=== PATIENT | female | born 1995 | race Caucasian/White ===

== ENCOUNTER 2022-08-02 18:27 | Emergency (ER) | payer OTHER ==
[2022-08-02 18:42] VITALS: O2SAT 100
[2022-08-02 19:12] LABS: Absolute Neutrophil Ct (ANC) 5.43 x10^3/uL (1.4-6.9); BASOPHIL % 0.2 % (0.0-0.4); Basophil (Absolute #) 0.02 x10^3/uL (0-0.4); Eosinophil % 1.7 % (0.00-5.0); Eosinophil (Absolute #) 0.14 x10^3/uL (0-0.5); Hematocrit 40.9 % (35-47); Hemoglobin 12.8 g/dL (12.0-16.0); IMMATURE GRAN # 0.05 x10^3u/L (0.00-0.03); IMMATURE GRAN % 0.6 % (0.00-0.4); Lymphocyte (Absolute #) 2.16 x10^3/uL (1.0-4.6); Mean Cell Volume 83.3 fL (78-100); Mean Corpuscular Hemoglobin 26.1 pg (26-32); Mean Corpuscular Hgb Concent. 31.3 g/dL (32-36); Mean Platelet Volume 9.9 fL (7.5-11.0); Neutrophil % 65.5 % (36.0-66.0); Platelet Count 305 x10^3/uL (150-450); Red Blood Count 4.91 x10^6/uL (4.1-5.4); Red Cell Distribution Width 15.5 % (11.5-14.0); White Blood Count 8.3 x10^3/uL (4.0-10.5)
[2022-08-02 19:29] LABS: ALBUMIN 4.3 g/dL (3.5-5.0); ALKALINE PHOSPHATASE 133 U/L (38-126); BLOOD UREA NITROGEN 11 mg/dL (7-17); CHLORIDE 105 mmol/L (98-107); Calcium 8.7 mg/dL (8.4-10.2); Carbon Dioxide 23 mmol/L (22-30); Creatinine 1 0.86 mg/dL (0.52-1.04); EST GLOMERULAR FILTRATION RATE > 60.0 ML/MIN; Glucose 132 mg/dL (74-106); LIPASE 135 U/L (23-300); Potassium 3.8 mmol/L (3.5-5.1); SGOT/AST 26 U/L (14-36); SGPT/ALT 24 U/L (0-35); SODIUM 140 mmol/L (137-145); Total Protein 7.6 g/dL (6.3-8.2)
[2022-08-02 19:46] LABS: Appearance Clear (Clear); Bacteria Rare /HPF (None Seen); Bilirubin Negative (Negative); Blood Small (Negative); Epithelial Cells Rare /HPF (None Seen); Glucose, Urine Negative (Negative); Hyaline Casts NONE SEEN /LPF (0-2); Ketones Negative (Negative); Leukocyte Esterase Small (Negative); Nitrite Negative (Negative); Ph 5.5 (4.6-8.0); Protein,Urine Dip Negative (Negative); RBC 0-2 /HPF (0-5); Urobilinogen 0.2 mg/dL (0.2)
[2022-08-02 19:47] LABS: ADD URINE CULTURE? NO (NO)
--- NOTE | 2022-08-02 20:33 | ERPHSYRPT ---
- History of Present Illness Time Seen by Provider: 08/02/22 18:40 Historian: patient Exam Limitations: no limitations Patient Subjective Stated Complaint: pt states I am having pain on my rt side Triage Nursing Assessment: pt came into the er via ambulance; pt transfer to cot per self; c/o RUQ pain; pt states she ate prior to arrival; no respiratory distress present; skin PDW; abd obese, soft, nontender; hypertensive; tachycardic Physician History: Patient 27-year-old female presents to our ED for evaluation of right upper quadrant pain. Pain occurred after eating a meal. Pain gradually subsided. Patient denies a history of the same. No trauma. No fever. No nausea vomiting or diaphoresis. Symptoms are mild to moderate in intensity. Symptoms are intermittent. Patient voices no other complaints or concerns at this time. 27-year-old female with right upper quadrant pain. Pain resolved. Patient resting comfortably. Physical exam shows some tenderness to right upper quadrant. No rebound. No peritoneal signs. Test ordered include CT abdomen pelvis, CBC, CMP, hCG, lipase and UA. CT abdomen pelvis reveals stomach distended with food. Patient does had a meal and states that her right upper quadrant pain occurred after she ate. Patient is not feeling well. Normal appendix. Uterine endometrial cavity distended up to 3 cm. Fatty liver. Patient will be referred to Dr. Alvarez for the distended uterine endometrial cavity. Complexity of problems addressed is moderate. New diagnosis uncertain prognosis. Test ordered. Test reviewed. Patient served as independent historian however E MS provided significant information towards HPI. Case discussed with Dr. Wiley. We discussed management regarding patient's right upper quadrant pain. We were unable to add right upper quadrant ultrasound today as ultrasound is not immediately available. A right upper quadrant ultrasound was ordered for the morning. Patient has a prescription to obtain the ultrasound. Report to be sent to Dr. Wiley. However Dr. Wiley may not be available today to see our patient and he advised our patient to follow[facility]up at [facility] as they have access to the ultrasound result. Any concerning findings patient will be referred back to the ER. -Risk of complication and or risk morbidity/mortality of patient management is minimal. Patient declined pain medication his pain resolved upon arrival LINDA PM (risk of complications and or M&M of patient management) -Therapeutic interventions like immediate treatment, medication IM/IV/SQ controlled meds/-benzos/narcotics, nebulizer treatment, IVF, Blood transfusion, (any response to care), -Referrals, consults, discussion with admitting MD -Procedures (CPR, intubation, lac repair), offered, considered, performed, risks/benefits explained to patient, comorbidity effects -State potential risks of meds (blood thinners, anti-arrhythmics, insulin, blood transfusion reaction) -Prescription drugs. (including considered and or offered and why) -State any therapies considered or offered and why Minimal risk-superficial dressings, slings, gargle Low Risk-minor sx (lac repair), PT/OT (walk pt), IVF Moderate Risk-prescriptions, I&D, surgical decisions, Treatment limited by SDOH High Risk- IV/IM/SQ controlled meds, meds requiring monitoring, hospitalization, Nebulizer rx. DNR decision. Dispo (Admit, DC, Transfer, ) Plan of care and any SDOH that may impede follow up like ETOH use, smoking, homelessness, money, family support (ability to access/comply with plan) -Shared decision making (patient agrees to etc) -Time spent to discharge patient. -DC Dx, -DC vitals Level of EM service provided ? Level of EM service provided would be the same as the highest level assigned to COPA, CODA, LINDA. (Straight forward (282), Low (283), Moderate (284), High (285), Critical Care) Document everything done in caring for the patient and why. Document if I discussed code status full code/DNR and everything in between Document any changes in working Diagnosis Timing/Duration: today Activities at Onset: none Quality: aching Abdominal Pain Onset Location: RUQ Pain Radiation: no radiation Severity of Pain-Max: moderate Severity of Pain-Current: mild Modifying Factors: Improves With: other (Pain worsens after eating.) Associated Symptoms: denies symptoms Previous symptoms: no prior history Allergies/Adverse Reactions: No Known Drug Allergies Allergy (Unverified 08/02/22 18:30) Home Medications: No Reportable Medications [No Reported Medications] 08/02/22 [History] Hx Tetanus, Diphtheria Vaccination/Date Given: No Travel Risk - International Travel Have you traveled outside of the country in past 3 weeks: No - Coronavirus Screening Are you exhibiting any of the following symptoms?: No Close contact with a COVID-19 positive Pt in past 14-21 Days: No - Vaccine Status Have you recieved a Covid-19 vaccination: Yes 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 - Vaccination Dates Dates if Unknown: unknown - Review of Systems Constitutional: No Symptoms, No Fever, No Chills Eyes: No Symptoms Ears, Nose, & Throat: No Symptoms Respiratory: No Symptoms, No Cough, No Dyspnea Cardiac: No Symptoms, No Chest Pain, No Edema, No Syncope Abdominal/Gastrointestinal: No Symptoms, No Abdominal Pain, No Nausea, No V omiting, No Diarrhea Genitourinary Symptoms: No Symptoms, No Dysuria Musculoskeletal: No Symptoms, No Back Pain, No Neck Pain Skin: No Symptoms, No Rash Neurological: No Symptoms, No Dizziness, No Focal Weakness, No Sensory Changes Psychological: No Symptoms Endocrine: No Symptoms Hematologic/Lymphatic: No Symptoms Immunological/Allergic: No Symptoms All Other Systems: Reviewed and Negative - Past Medical History Pertinent Past Medical History: Yes Neurological History: No Pertinent History ENT History: No Pertinent History Cardiac History: No Pertinent History Respiratory History: No Pertinent History Endocrine Medical History: No Pertinent History Musculoskeletal History: No Pertinent History GI Medical History: No Pertinent History History: No Pertinent History Psycho-Social History: Anxiety, Depression Female Reproductive Disorders: No Pertinent History - Past Surgical History Past Surgical History: No - Social History Smoking Status: Never smoker Exposure to second hand smoke: No Drug Use: none Patient Lives Alone: No - Female History Hx Now: No (unsure) - Nursing Vital Signs Nursing Vital Signs: Initial Vital Signs Temperature 99.3 F 08/02/22 18:30 Pulse Rate 109 H 08/02/22 18:30 Respiratory Rate 20 08/02/22 18:30 Blood Pressure 177/123 08/02/22 18:30 O2 Sat by Pulse Oximetry 100 08/02/22 18:30 Pain Scale Pain Intensity 8 - Physical Exam General Appearance: no apparent distress, alert Eye Exam: PERRL/EOMI, eyes nml inspection Ears, Nose, Throat Exam: normal ENT inspection, pharynx normal, moist mucous membranes Neck Exam: normal inspection, non-tender, supple, full range of motion Respiratory Exam: normal breath sounds, lungs clear, airway intact, No respiratory distress Cardiovascular Exam: regular rate/rhythm, normal heart sounds, normal peripheral pulses Gastrointestinal/Abdomen Exam: soft, No tenderness, No mass Back Exam: normal inspection, normal range of motion, No CVA tenderness, No v ertebral tenderness Extremity Exam: normal inspection, normal range of motion, pelvis stable Neurologic Exam: alert, oriented x 3, cooperative, normal mood/affect, nml cerebellar function, sensation nml, No motor deficits Skin Exam: normal color, warm, dry Lymphatic Exam: No adenopathy SpO2 Interpretation: normal SpO2: 100 O2 Delivery: Room Air - Course Nursing assessment & vital signs reviewed: Yes - CT Exams Abdomen/Pelvis CT Interpretation: Tele-radiologist Report (No comps. Stomach distended with food. Normal appendectomy. Uterine endometrial cavity distended up to 3 cm. Fatty liver.) Ordered Tests: Active Orders 24 hr Category Date Time Status ABDOMEN AND PELVIS W/0 CONTRAS [CT] Stat Exams 08/02/22 19:38 Taken CBC W DIFF Stat Lab 08/02/22 19:05 Completed CMP Stat Lab 08/02/22 19:05 Completed HCG,QUALITATIVE URINE Stat Lab 08/02/22 18:51 Completed LIPASE Stat Lab 08/02/22 19:05 Completed UA W/RFX UR CULTURE Stat Lab 08/02/22 18:51 Completed Lab/Rad Data: Laboratory Result Diagrams 08/02/22 19:05 08/02/22 19:05 Laboratory Results 08/02/22 08/02/22 08/02/22 Range/Units 19:05 19:05 18:51 WBC 8.3 (4.0-10.5) x10^3/uL RBC 4.91 (4.1-5.4) x10^6/uL Hgb 12.8 (12.0-16.0) g/dL Hct 40.9 (35-47) % MCV 83.3 (78-100) fL MCH 26.1 (26-32) pg MCHC 31.3 L (32-36) g/dL RDW 15.5 H (11.5-14.0) % Plt Count 305 (150-450) x10^3/uL MPV 9.9 (7.5-11.0) fL Gran % 65.5 (36.0-66.0) % Immature Gran % (Auto) 0.6 H (0.00-0.4) % Nucleat RBC Rel Count 0.0 (0.00-0.1) % Eos # (Auto) 0.14 (0-0.5) x10^3/uL Immature Gran # (Auto) 0.05 H (0.00-0.03) x10^3u/L Absolute Lymphs (auto) 2.16 (1.0-4.6) x10^3/uL Absolute Monos (auto) 0.50 (0.0-1.3) x10^3/uL Absolute Nucleated RBC 0.00 (0.00-0.01) x10^3u/L Lymphocytes % 26.0 (24.0-44.0) % Monocytes % 6.0 (0.0-12.0) % Eosinophils % 1.7 (0.00-5.0) % Basophils % 0.2 (0.0-0.4) % Absolute Granulocytes 5.43 (1.4-6.9) x10^3/uL Basophils # 0.02 (0-0.4) x10^3/uL Sodium 140 (137-145) mmol/L Potassium 3.8 (3.5-5.1) mmol/L Chloride 105 (98-107) mmol/L Carbon Dioxide 23 (22-30) mmol/L Anion Gap 16.0 H (5-15) MEQ/L BUN 11 (7-17) mg/dL Creatinine 0.86 (0.52-1.04) mg/dL Estimated GFR > 60.0 ML/MIN Glucose 132 H (74-106) mg/dL Calcium 8.7 (8.4-10.2) mg/dL Total Bilirubin 0.20 (0.2-1.3) mg/dL AST 26 (14-36) U/L ALT 24 (0-35) U/L Alkaline Phosphatase 133 H (38-126) U/L Serum Total Protein 7.6 (6.3-8.2) g/dL Albumin 4.3 (3.5-5.0) g/dL Lipase 135 (23-300) U/L Urine Color (Yellow) Urine Appearance (Clear) Urine pH (4.6-8.0) Ur Specific Col[place] (1.005-1.030) Urine Protein (Negative) Urine Glucose (UA) (Negative) mg/dL Urine Ketones (Negative) Urine Blood (Negative) Urine Nitrite (Negative) Urine Bilirubin (Negative) Urine Urobilinogen (0.2) mg/dL Ur Leukocyte Esterase (Negative) U Hyaline Cast (Auto) (0-2) /LPF Urine Microscopic RBC (0-5) /HPF Urine Microscopic WBC (0-5) /HPF Ur Epithelial Cells (None Seen) /HPF Urine Bacteria (None Seen) /HPF Urine Culture Reflexed (NO) Urine HCG, Qual NEGATIVE (Negative) 08/02/22 Range/Units 18:51 WBC (4.0-10.5) x10^3/uL RBC (4.1-5.4) x10^6/uL Hgb (12.0-16.0) g/dL Hct (35-47) % MCV (78-100) fL MCH (26-32) pg MCHC (32-36) g/dL RDW (11.5-14.0) % Plt Count (150-450) x10^3/uL MPV (7.5-11.0) fL Gran % (36.0-66.0) % Immature Gran % (Auto) (0.00-0.4) % Nucleat RBC Rel Count (0.00-0.1) % Eos # (Auto) (0-0.5) x10^3/uL Immature Gran # (Auto) (0.00-0.03) x10^3u/L Absolute Lymphs (auto) (1.0-4.6) x10^3/uL Absolute Monos (auto) (0.0-1.3) x10^3/uL Absolute Nucleated RBC (0.00-0.01) x10^3u/L Lymphocytes % (24.0-44.0) % Monocytes % (0.0-12.0) % Eosinophils % (0.00-5.0) % Basophils % (0.0-0.4) % Absolute Granulocytes (1.4-6.9) x10^3/uL Basophils # (0-0.4) x10^3/uL Sodium (137-145) mmol/L Potassium (3.5-5.1) mmol/L Chloride (98-107) mmol/L Carbon Dioxide (22-30) mmol/L Anion Gap (5-15) MEQ/L BUN (7-17) mg/dL Creatinine (0.52-1.04) mg/dL Estimated GFR ML/MIN Glucose (74-106) mg/dL Calcium (8.4-10.2) mg/dL Total Bilirubin (0.2-1.3) mg/dL AST (14-36) U/L ALT (0-35) U/L Alkaline Phosphatase (38-126) U/L Serum Total Protein (6.3-8.2) g/dL Albumin (3.5-5.0) g/dL Lipase (23-300) U/L Urine Color Yellow (Yellow) Urine Appearance Clear (Clear) Urine pH 5.5 (4.6-8.0) Ur Specific Col[place] 1.020 (1.005-1.030) Urine Protein Negative (Negative) Urine Glucose (UA) Negative (Negative) mg/dL Urine Ketones Negative (Negative) Urine Blood Small A (Negative) Urine Nitrite Negative (Negative) Urine Bilirubin Negative (Negative) Urine Urobilinogen 0.2 (0.2) mg/dL Ur Leukocyte Esterase Small A (Negative) U Hyaline Cast (Auto) NONE SEEN (0-2) /LPF Urine Microscopic RBC 0-2 (0-5) /HPF Urine Microscopic WBC 3-5 (0-5) /HPF Ur Epithelial Cells Rare (None Seen) /HPF Urine Bacteria Rare A (None Seen) /HPF Urine Culture Reflexed NO (NO) Urine HCG, Qual (Negative) - Progress Progress: improved Progress Note: 27-year-old female presents to our ED with right upper quadrant pain. Patient arrived via EMS. Upon arrival pain significantly improved. Complexity of problem addressed is moderate. New diagnosis with uncertain prognosis. No critical care time. Complexity of data reviewed and analyzed is moderate. Dr. Chiang reviewed laboratory studies as well as report from radiologist. Risk of complication and or risk morbidity/mortality of patient management is minimal. Patient declined pain medication as her right upper quadrant pain resolved upon arrival. Patient to obtain right upper quadrant ultrasound tomorrow morning. Patient will contact Dr. Wiley however she cannot see Dr. Wiley patient reported [facility]. They have access to the right upper quadrant ultrasound report. If there are any abnormalities patient to return to our ED for an evaluation. Portions of this note were created with voice recognition technology. There may be grammatical, spelling, punctuation or sound alike errors Patient will be discharged home. She is asymptomatic. She voices no other complaints or concerns at this time. Discussed with : Matthieu Will see patient in: office Counseled pt/family regarding: lab results, diagnosis, need for follow-up, rad results - Departure Departure Disposition: Home Clinical Impression: Right upper quadrant pain, Uterine endometrial cavity distended, Fatty liver Condition: Stable Critical Care Time: No Referrals: DANIS CARRANZA DO [ACTIVE STAFF] - Follow up/PCP as directed TARYN WILEY MD [ACTIVE STAFF] - Follow up/PCP as directed Additional Instructions: Please follow-up with for your abnormal uterus as observed on today's CAT scan Please obtain a right upper quadrant ultrasound in the morning of 08/03/[address] Wiley's office however if you cannot see Dr. Wiley report to [facility] as they will have access to the report. If there is a significant abnormality observed on the report they will direct you to return to our emergency department. Discharge/Care Plan GARRICK MTAHEW was seen on 08/02/22 in the Emergency Room. The patient was counseled regarding Diagnosis,Lab results, Imaging studies, need for follow up and when to return to the Emergency Room. Prescriptions given: Discharge Note I have spoken with the patient and/or caregivers. I have explained the patient's condition, diagnosis and treatment plan based on the information available to me at this time. I have answered the patient's and/or caregiver's questions and addressed any concerns. The patient and/or caregivers have as good understanding of the patient's diagnosis, condition and treatment plan as can be expected at this point. The vital signs have been stable. The patient's condition is stable and appropriate for discharge from the emergency department. The patient will pursue further outpatient evaluation with the primary care physician or other designated or consulting physician as outlined in the discharge instructions. The patient and/or caregivers are agreeable to this plan of care and follow-up instructions have been explained in detail. The patient a nd/or caregivers have received these instruction. The patient/and or caregivers are aware that any significant change in condition or worsening of symptoms should prompt an immediate return to this or the closest emergency department or call 911.
[2022-08-02 20:58] VITALS: BP 138/95; PULSE 95
--- NOTE | 2022-08-03 08:36 | XRAY ---
Indication: Right upper quadrant pain. Multiple contiguous images obtained through the abdomen and pelvis without contrast. Comparison: None Lung bases clear. Heart not enlarged. Stomach is distended with food. Gallbladder contracted without gallstones. Noncontrasted stomach and bowel loops appear nonobstructed with normal air-filled appendix. Mild diffuse fatty liver. Uterus demonstrates thickened endometrial cavity up to 3 cm in thickness. No free fluid/air. Remaining liver, gallbladder, pancreas, spleen, adrenal glands, kidneys, ureters, bladder, uterus, and aorta are unremarkable for noncontrast exam. Osseous structures intact. No ventral or inguinal hernias. Impression: 1. Thickened endometrial cavity. Correlate with patient's menstrual cycle. Pelvic sonogram may yield further information if clinically warranted. 2. Fatty liver. 3. Remaining CT abdomen/pelvis without contrast exam is negative.
== END 2022-08-02 21:00 | disposition home or self-care (01) ==
LOC: ED 18:27
DX: R10.11 Right upper quadrant pain (principal); K76.0 Fatty (change of) liver, not elsewhere classified; N85.8 Other specified noninflammatory disorders of uterus
CPT/HCPCS: 36415; 74176; 80053; 81001; 81025; 83690; 85025; 99283